=== PATIENT | female | born 1990 | race Caucasian/White ===

== ENCOUNTER 2024-03-03 19:38 | Emergency (ER) | payer SELFPAY ==
[~2024-03-03] VITALS: Ht 160 cm; Wt 77.0 kg
[2024-03-03 19:42] VITALS: BP 142/86; PULSE 64; RESP 18; TEMP 98.4; O2SAT 97
== END 2024-03-03 22:14 | disposition left against medical advice (07) ==
LOC: ER 19:38
DX: M79.672 Pain in left foot (principal); M79.671 Pain in right foot; Z53.21 Procedure and treatment not carried out due to patient leaving prior to being seen by health care provider